=== PATIENT | male | born 1965 | race Caucasian/White ===

== ENCOUNTER → 2017-04-29 | Outpatient (CLI) | payer OTHER ==
[~2017-04-29] MED LIST: ASPI-1471 PO; ATOR40TA24 PO; ATOR40TA69 PO; GADOBENATE 529MG/1ML 15ML VIAL IVP ONE; IBUP200C71 PO; PANT40TA65 PO; ROSU20TA23 PO
--- NOTE | 2017-04-29 10:11 | RADIOLOGY IMAGING REPORT ---
FACILITY: [facility] PATIENT NAME: Addi Rashid : 1965 MR: [id number] V: [id number] EXAM DATE: ORDERING PHYSICIAN: YUVAL CASTILLO TECHNOLOGIST: Location: [facility] Patient: Addi Rashid : 1965 Visit/Account:[id number] Date of Sevice: 04/29/2017 EXAMINATION: MRI brain without IV contrast MRI brain with IV contrast HISTORY: Hypercholesterolemia, memory impairment. COMPARISON: Brain MRI from 09/27/2011. TECHNIQUE: Multi-planar, multi-sequence brain MRI was performed before and after IV gadolinium. CONTRAST: 15 mL of IV MultiHance gadolinium. FINDINGS: Brain volume: There is no brain atrophy. Sagittal midline structures: Normal. Ventricles: Normal. Acute ischemic changes: No diffusion restriction present to suggest acute ischemia. Hemorrhage: No acute hemorrhage or hemosiderin staining. Masses/edema: None. Enhancement: There is no abnormal intracranial enhancement. Andrews-white: Negative. White matter: There is a single punctate T2/FLAIR hyperintense lesion in the subcortical deep white matter of the right frontal lobe at the vertex, unchanged. Vessels: Normal. Extra-axial: None. Calvarium/scalp: Negative. Skull base: Negative. Visualized sinuses/orbits: Minimal mucosal thickening in the bilateral ethmoid air cells. Visualized upper neck: Negative. IMPRESSION: 1. No acute infarct, hemorrhage or intracranial mass lesion. No brain atrophy. 2. Single punctate white matter lesion is unchanged and could be due to chronic migraine headaches, previous inflammation or trauma. 3. Mild nonobstructive inflammation of the bilateral ethmoid air cells. Report Dictated By: Marlene Rodriguez MD at 04/29/2017 10:05 AM Report E-Signed By: Marlene Rodriguez MD at 04/29/2017 10:07 AM WSN:[id number]
== END ==
LOC: MRI 04-05 02:49
PROVIDERS: ATTEND Internal Medicine
DX: G93.89 Other specified disorders of brain (principal); E78.00 Pure hypercholesterolemia, unspecified
CPT/HCPCS: 70553; A9577

== ENCOUNTER → 2018-03-18 | Outpatient (CLI) | payer OTHER ==
[~2018-03-18] MED LIST changes: -GADOBENATE 529MG/1ML 15ML VIAL IVP ONE; +IBUP-136 PO; -IBUP200C71 PO
== END ==
LOC: LAB 14:40
PROVIDERS: ATTEND Internal Medicine
DX: R94.5 Abnormal results of liver function studies (principal)
CPT/HCPCS: 36415; 80074